=== PATIENT | male | born 1995 | race Asian ===

== ENCOUNTER 2023-01-17 20:37 | Emergency (ER) | payer SELFPAY ==
[~2023-01-17] VITALS: Ht 165.1 cm; Wt 77.1 kg
[2023-01-17 21:41] VITALS: O2SAT 100
[2023-01-17] MEDS ORDERED: ULTRAM 50MG50 MG PO (23:24)
== END 2023-01-17 23:27 | disposition home or self-care (01) ==
LOC: ER 20:50
DX: N50.812 Left testicular pain (principal); I86.1 Scrotal varices
CPT/HCPCS: 76870; 93976; 99283

== ENCOUNTER → 2023-05-18 | Day surgery (SDC) | payer BC, OTHER ==
[2023-04-30 11:24] LABS: BASOPHILS % 0.5 % (0.0-1.0); EOSINOPHILS # (AUTO) 0.5 (0.0-0.4); EOSINOPHILS % 9.2 % (0.0-6.0); HEMATOCRIT 39.9 % (38.2-49.6); HEMOGLOBIN 12.7 g/dL (14.0-18.0); LYMPHOCYTES # (AUTO) 1.9 (1.0-3.2); LYMPHOCYTES % 33.7 % (18.0-39.1); MEAN CORPUSCULAR HEMOGLOBIN 30.5 pg (28-32); MEAN CORPUSCULAR HGB CONC 31.8 g/dL (31-35); MEAN CORPUSCULAR VOLUME 95.9 fL (81-99); MONOCYTES # (AUTO) 0.4 (0.2-0.8); MONOCYTES % 7.4 % (4.4-11.3); NEUTROPHILS # (AUTO) 2.7 (2.1-6.9); NEUTROPHILS % 48.8 % (38.7-80.0); PLATELET COUNT 311 x10e3/uL (140-360); RED BLOOD COUNT 4.16 x10e6/uL (4.3-5.7); RED CELL DISTRIBUTION WIDTH 11.3 % (11.7-14.4); WHITE BLOOD COUNT 5.55 x10e3/uL (4.8-10.8)
[2023-04-30 11:36] LABS: ALBUMIN 4.1 g/dL (3.5-5.0); ALBUMIN/GLOBULIN RATIO 1.3 (0.8-2.0); ANION GAP 11.1 mmol/L (8-16); BILIRUBIN,TOTAL 0.2 mg/dL (0.2-1.2); CALCIUM 9.2 mg/dL (8.4-10.2); CREATININE, SERUM 1.2 mg/dL (0.72-1.25); POTASSIUM 4.1 mmol/L (3.5-5.1); TOTAL PROTEIN 7.3 g/dL (6.5-8.1)
[2023-05-16 09:09] LABS: BASOPHILS % 0.4 % (0.0-1.0); EOSINOPHILS # (AUTO) 0.6 (0.0-0.4); EOSINOPHILS % 10.3 % (0.0-6.0); HEMATOCRIT 40.4 % (38.2-49.6); HEMOGLOBIN 13.8 g/dL (14.0-18.0); LYMPHOCYTES # (AUTO) 2.1 (1.0-3.2); LYMPHOCYTES % 38.3 % (18.0-39.1); MEAN CORPUSCULAR HEMOGLOBIN 31.2 pg (28-32); MEAN CORPUSCULAR HGB CONC 34.2 g/dL (31-35); MEAN CORPUSCULAR VOLUME 91.4 fL (81-99); MONOCYTES # (AUTO) 0.5 (0.2-0.8); MONOCYTES % 9.9 % (4.4-11.3); NEUTROPHILS # (AUTO) 2.2 (2.1-6.9); NEUTROPHILS % 40.9 % (38.7-80.0); PLATELET COUNT 247 x10e3/uL (140-360); RED BLOOD COUNT 4.42 x10e6/uL (4.3-5.7); RED CELL DISTRIBUTION WIDTH 11.7 % (11.7-14.4); WHITE BLOOD COUNT 5.43 x10e3/uL (4.8-10.8)
[2023-05-16 09:58] LABS: ALBUMIN 4.4 g/dL (3.5-5.0); ALBUMIN/GLOBULIN RATIO 1.1 (0.8-2.0); BILIRUBIN,TOTAL 0.4 mg/dL (0.2-1.2); CALCIUM 9.5 mg/dL (8.4-10.2); CREATININE, SERUM 1.3 mg/dL (0.72-1.25); TOTAL PROTEIN 8.3 g/dL (6.5-8.1)
[~2023-05-18] MED LIST: BUPIVACAINE HCL 0.5% INJ 30 ML VIAL INJ ONE; DEXAMETHASONE SOD PHOS INJ 4 MG/ML SDV ONE; DEXMEDETOMIDINE HCL 2 ML ONE; DICYCLOMINE HCL20 MG PO; FENTANYL CITRATE/PF 100MCG/2 ML INJ ONE; KETOROLAC TROMETHAMINE 30 MG/ML VIAL ONE; LIDOCAINE HCL 1% LOCAL INJ 20 ML VIAL ONE; LIDOCAINE HCL 2% LOCAL INJ 5 ML SDV VIAL INJ ONE; MIDAZOLAM HCL 2 MG/2 ML VIAL ONE; NAPROXEN500 MG PO; ONDANSETRON HCL INJ 2MG/ML 2ML 2 MG/ML VIAL ONE; PROPOFOL IV EMULSION 10 MG/ML 20 ML VIAL ONE; PROTONIX20 MG PO; SEVOFLURANE INHAL SOLN 250 ML PEN BTL ONE; ULTRAM 50MG50 MG PO
[2023-05-18] MEDS: LACTATED RINGER'S 1,000 ML ONE (05:52)
[2023-05-18] MEDS: CEFAZOLIN SODIUM 2 GM ONE (05:54)
[2023-05-18] MEDS: ACETAMINOPHEN/CODEINE 300MG - 30MG TAB ONE (11:27)
[2023-05-18 11:45] VITALS: BP 113/75; PULSE 73; RESP 18; O2SAT 99
== END | disposition home or self-care (01) ==
LOC: OR 05:19
PROVIDERS: ATTEND Urology
DX: I86.1 Scrotal varices (principal); E66.9 Obesity, unspecified; K76.0 Fatty (change of) liver, not elsewhere classified; F17.200 Nicotine dependence, unspecified, uncomplicated; Z01.812 Encounter for preprocedural laboratory examination; Z79.1 Long term (current) use of non-steroidal anti-inflammatories (NSAID)
CPT/HCPCS: 36415 ×2; 55530; 80053 ×2; 85025 ×2; J1100; J1885; J2001; J2250; J2405; J2704; J3010; J7121

== ENCOUNTER 2023-06-05 12:21 | Emergency (ER) | payer BC ==
[~2023-06-05] VITALS: Ht 165.1 cm; Wt 77.1 kg
[~2023-06-05 12:21] MED LIST changes: -BUPIVACAINE HCL 0.5% INJ 30 ML VIAL INJ ONE; -DEXAMETHASONE SOD PHOS INJ 4 MG/ML SDV ONE; -DEXMEDETOMIDINE HCL 2 ML ONE; -FENTANYL CITRATE/PF 100MCG/2 ML INJ ONE; -KETOROLAC TROMETHAMINE 30 MG/ML VIAL ONE; -LIDOCAINE HCL 1% LOCAL INJ 20 ML VIAL ONE; -LIDOCAINE HCL 2% LOCAL INJ 5 ML SDV VIAL INJ ONE; -MIDAZOLAM HCL 2 MG/2 ML VIAL ONE; -ONDANSETRON HCL INJ 2MG/ML 2ML 2 MG/ML VIAL ONE; -PROPOFOL IV EMULSION 10 MG/ML 20 ML VIAL ONE; -SEVOFLURANE INHAL SOLN 250 ML PEN BTL ONE
[2023-06-05 13:05] LABS: BASOPHILS % 0.2 % (0.0-1.0); EOSINOPHILS # (AUTO) 0.2 (0.0-0.4); EOSINOPHILS % 1.8 % (0.0-6.0); HEMATOCRIT 35.5 % (38.2-49.6); HEMOGLOBIN 12.5 g/dL (14.0-18.0); LYMPHOCYTES % 12.3 % (18.0-39.1); MEAN CORPUSCULAR HEMOGLOBIN 30.9 pg (28-32); MEAN CORPUSCULAR HGB CONC 35.2 g/dL (31-35); MEAN CORPUSCULAR VOLUME 87.7 fL (81-99); MONOCYTES # (AUTO) 0.6 (0.2-0.8); MONOCYTES % 6.8 % (4.4-11.3); NEUTROPHILS # (AUTO) 6.5 (2.1-6.9); NEUTROPHILS % 78.7 % (38.7-80.0); PLATELET COUNT 244 x10e3/uL (140-360); RED BLOOD COUNT 4.05 x10e6/uL (4.3-5.7); RED CELL DISTRIBUTION WIDTH 11.8 % (11.7-14.4); WHITE BLOOD COUNT 8.24 x10e3/uL (4.8-10.8)
[2023-06-05] MEDS ORDERED: HYDROCODONE/APAP 10MG-325MG TAB ONE (13:21)
[2023-06-05] MEDS: HYDROCODONE/APAP 10MG-325MG TAB PO ONE (13:22)
[2023-06-05 13:27] LABS: ALBUMIN 4.2 g/dL (3.5-5.0); ALBUMIN/GLOBULIN RATIO 1.3 (0.8-2.0); ANION GAP 14.3 mmol/L (8-16); BILIRUBIN,TOTAL 0.7 mg/dL (0.2-1.2); CALCIUM 9.4 mg/dL (8.4-10.2); CREATININE, SERUM 1.1 mg/dL (0.72-1.25); TOTAL PROTEIN 7.5 g/dL (6.5-8.1)
[2023-06-05 13:46] LABS: BILIRUBIN,URINE NEGATIVE (NEGATIVE); CLARITY,URINE CLEAR (CLEAR); COLOR,URINE YELLOW (YELLOW); GLUCOSE, URINE NEGATIVE (NEGATIVE); KETONES,URINE NEGATIVE (NEGATIVE); LEUKOCYTE ESTERASE ,URINE NEGATIVE (NEGATIVE); NITRITE,URINE NEGATIVE (NEGATIVE); PH,URINE 6.5 (5 - 7); PROTEIN,URINE DIPSTICK NEGATIVE (NEGATIVE); URINE UROBILINOGEN 0.2 mg/dL (0.2 - 1)
[2023-06-05 13:52] LABS: MUCUS,URINE MODERATE (RARE); WBC,URINE (MAN) 0-5 /HPF (0-5)
[2023-06-05 13:58] LABS: POTASSIUM 3.3 mmol/L (3.5-5.1)
[2023-06-05 14:52] VITALS: BP 122/76; PULSE 88; RESP 16; O2SAT 99
== END 2023-06-05 14:56 | disposition home or self-care (01) ==
LOC: ER 12:59
DX: R50.9 Fever, unspecified (principal); I86.1 Scrotal varices
CPT/HCPCS: 36415; 76870; 80053; 81001; 85025; 87040; 87086; 93976; 99284

== ENCOUNTER 2023-11-26 14:53 | Emergency (ER) | payer OTHER ==
[~2023-11-26] VITALS: Ht 165.1 cm; Wt 80.3 kg
[~2023-11-26 14:53] MED LIST changes: +IBUPROFEN600 MG PO
[2023-11-26 15:30] VITALS: PULSE 68; RESP 15; TEMP 98.2
[2023-11-26 16:09] LABS: BASOPHILS # (AUTO) 0.1 (0.0-0.1); BASOPHILS % 0.8 % (0.0-1.0); EOSINOPHILS # (AUTO) 0.6 (0.0-0.4); EOSINOPHILS % 9.1 % (0.0-6.0); HEMATOCRIT 40.3 % (38.2-49.6); HEMOGLOBIN 12.7 g/dL (14.0-18.0); LYMPHOCYTES # (AUTO) 2.2 (1.0-3.2); LYMPHOCYTES % 36.6 % (18.0-39.1); MEAN CORPUSCULAR HEMOGLOBIN 30.3 pg (28-32); MEAN CORPUSCULAR HGB CONC 31.5 g/dL (31-35); MEAN CORPUSCULAR VOLUME 96.2 fL (81-99); MONOCYTES # (AUTO) 0.6 (0.2-0.8); MONOCYTES % 10.5 % (4.4-11.3); NEUTROPHILS # (AUTO) 2.6 (2.1-6.9); NEUTROPHILS % 42.7 % (38.7-80.0); PLATELET COUNT 263 x10e3/uL (140-360); RED BLOOD COUNT 4.19 x10e6/uL (4.3-5.7); WHITE BLOOD COUNT 6.07 x10e3/uL (4.8-10.8)
[2023-11-26 16:33] LABS: ALBUMIN 4.3 g/dL (3.5-5.0); ALBUMIN/GLOBULIN RATIO 1.4 (0.8-2.0); ANION GAP 12.9 mmol/L (8-16); BILIRUBIN,TOTAL 0.4 mg/dL (0.2-1.2); CALCIUM 9.4 mg/dL (8.4-10.2); CREATININE, SERUM 1.16 mg/dL (0.72-1.25); POTASSIUM 3.9 mmol/L (3.5-5.1); TOTAL PROTEIN 7.3 g/dL (6.5-8.1)
[2023-11-26 17:41] LABS: CLARITY,URINE HAZY (CLEAR); COLOR,URINE STRAW (YELLOW)
[2023-11-26 17:42] LABS: BILIRUBIN,URINE NEGATIVE (NEGATIVE); GLUCOSE, URINE NEGATIVE (NEGATIVE); KETONES,URINE NEGATIVE (NEGATIVE); LEUKOCYTE ESTERASE ,URINE NEGATIVE (NEGATIVE); NITRITE,URINE NEGATIVE (NEGATIVE); PH,URINE 7 (5 - 7); PROTEIN,URINE DIPSTICK 2+ (NEGATIVE); URINE UROBILINOGEN 0.2 mg/dL (0.2 - 1)
[2023-11-26 17:43] LABS: AMORPHOUS SEDIMENT,URINE FEW (FEW)
[2023-11-26 18:15] VITALS: BP 112/67; PULSE 56; RESP 16; O2SAT 98
== END 2023-11-26 18:12 | disposition home or self-care (01) ==
LOC: ER 15:00
DX: N50.82 Scrotal pain (principal); N43.3 Hydrocele, unspecified; F17.210 Nicotine dependence, cigarettes, uncomplicated
CPT/HCPCS: 36415; 76870; 80053; 81001; 85025; 93976; 99283